=== PATIENT | female | born 1995 | race Two or more races ===

== ENCOUNTER 2018-02-22 13:59 | Outpatient (CLI) | payer MEDICAID ==
[2018-02-22 14:57] LABS: WHITE BLOOD COUNT 8.9 10^3/ul (4.8-10.8)
[2018-02-22 14:57] LABS: ADD MAN DIFF? NO; EOSINOPHILS # 0.1 10^3/ul (0.0-0.5); EOSINOPHILS % 1.2 % (0.0-7.0); HEMATOCRIT 30.2 % (37.0-47.0); HEMOGLOBIN 10.2 g/dl (12.0-16.0); LYMPHOCYTES # 1.5 10^3/ul (0.8-2.9); LYMPHOCYTES % 16.6 % (15.0-51.0); MEAN CORPUSCULAR HEMOGLOBIN 32.2 pg (29.0-33.0); MEAN CORPUSCULAR HGB CONC 33.8 g/dl (32.0-37.0); MEAN CORPUSCULAR VOLUME 95.3 fl (82.0-101.0); MEAN PLATELET VOLUME 10.6 fl (7.4-10.4); MONOCYTE # 0.8 10^3/ul (0.3-0.9); MONOCYTES % 8.7 % (0.0-11.0); NEUTROPHIL # 6.4 10^3/ul (1.6-7.5); NEUTROPHILS % 72.3 % (39.0-77.0); PLATELET COUNT 233 10^3/UL (140-415); RED BLOOD COUNT 3.17 10^6/ul (4.20-5.40); RED CELL DISTRIBUTION WIDTH 12.5 % (11.5-14.5)
== END 2018-02-22 17:00 | disposition home or self-care (01) ==
LOC: OBT 13:59 → L-D 13:59 → OBT 17:00
DX: O9A.212 Injury, poisoning and certain other consequences of external causes complicating pregnancy, second trimester (principal); Z3A.20 20 weeks gestation of pregnancy; V49.9XXA Car occupant (driver) (passenger) injured in unspecified traffic accident, initial encounter; Y92.410 Unspecified street and highway as the place of occurrence of the external cause
CPT/HCPCS: 76815; 85025; 85460; 86850; 86900; 86901

== ENCOUNTER 2018-02-22 17:26 | Emergency (ER) | payer MEDICAID | END 2018-02-22 19:26 | disposition home or self-care (01) | LOC: FTE 17:26 | DX: O9A.212 Injury, poisoning and certain other consequences of external causes complicating pregnancy, second trimester (principal); S39.92XA Unspecified injury of lower back, initial encounter; V43.52XA Car driver injured in collision with other type car in traffic accident, initial encounter; Z3A.20 20 weeks gestation of pregnancy | CPT/HCPCS: 99282; Z7502 ==

== ENCOUNTER 2018-06-18 06:05 | Inpatient (IN) | payer OTHER, MEDICAID ==
[2018-06-18 07:01] LABS: ADD UMIC YES; UR ASCORBIC ACID NEGATIVE (NEGATIVE); UR BACTERIA FEW /HPF (NONE SEEN); UR BILIRUBIN (Dip) NEGATIVE (NEGATIVE); UR BLOOD (Dip) 3+ mg/dL (NEGATIVE); UR CLARITY CLOUDY (CLEAR); UR COLOR AMBER (YELLOW); UR GLUCOSE (Dip) NEGATIVE (NEGATIVE); UR KETONES (Dip) NEGATIVE (NEGATIVE); UR LEUKOCYTE ESTERASE (Dip) NEGATIVE Leu/ul (NEGATIVE); UR NITRITE (Dip) NEGATIVE (NEGATIVE); UR RBC 19 /HPF (0-5); UR SPECIFIC GRAVITY (Dip) 1.015 (1.003-1.030); UR SQUAMOUS EPITHELIAL CELL MODERATE /HPF (FEW); UR TOTAL PROTEIN (Dip) 1+ mg/dl (NEGATIVE); UR UROBILINOGEN (Dip) 1+ mg/dL (NEGATIVE); UR WBC 12 /HPF (0-5)
[2018-06-18] MEDS: TERBUTALINE 1 MG/ML INJ SC (07:57)
[2018-06-18] MEDS: LACTATED RINGER'S 1,000 ML IV ×4 (07:57→22:42)
[2018-06-18] MEDS: CEFTRIAXONE 1 GM/50 ML (PMX) 50 ML IVPB (08:46)
[2018-06-18] MEDS ORDERED: BUTORPHANOL 1 MG INJ IV (13:30)
[2018-06-18] MEDS ORDERED: OXYTOCIN 30 UNITS/LR 500 ML IV (13:30)
[2018-06-18] MEDS ORDERED: MISOPROSTOL 200 MCG TAB PR (13:30)
[2018-06-18] MEDS ORDERED: CARBOPROST 250 MCG INJ IM (13:30)
[2018-06-18] MEDS ORDERED: METHYLERGONOVINE 0.2 MG INJ IM (13:30)
[2018-06-18] MEDS ORDERED: BUTORPHANOL 2 MG INJ IV (13:30)
[2018-06-18 14:36] LABS: ADD MAN DIFF? NO
[2018-06-18 14:53] LABS: WHITE BLOOD COUNT 8.1 10^3/ul (4.8-10.8)
[2018-06-18 14:53] LABS: BASOPHILS % 0.4 % (0.0-2.0); EOSINOPHILS % 0.2 % (0.0-7.0); HEMATOCRIT 30.4 % (37.0-47.0); HEMOGLOBIN 10.3 g/dl (12.0-16.0); LYMPHOCYTES # 1.2 10^3/ul (0.8-2.9); LYMPHOCYTES % 14.9 % (15.0-51.0); MEAN CORPUSCULAR HEMOGLOBIN 31.7 pg (29.0-33.0); MEAN CORPUSCULAR HGB CONC 33.9 g/dl (32.0-37.0); MEAN CORPUSCULAR VOLUME 93.5 fl (82.0-101.0); MEAN PLATELET VOLUME 12.1 fl (7.4-10.4); MONOCYTE # 0.5 10^3/ul (0.3-0.9); MONOCYTES % 6.7 % (0.0-11.0); NEUTROPHIL # 6.2 10^3/ul (1.6-7.5); NEUTROPHILS % 77.1 % (39.0-77.0); PLATELET COUNT 162 10^3/UL (140-415); RED BLOOD COUNT 3.25 10^6/ul (4.20-5.40); RED CELL DISTRIBUTION WIDTH 12.1 % (11.5-14.5)
[2018-06-18 15:41] LABS: INR 0.82; PARTIAL THROMBOPLASTIN TIME 23.7 Sec (23.0-35.0); PROTIME 11.4 Sec (11.9-14.9); PT RATIO 0.9
[2018-06-18] MEDS ORDERED: AMPICILLIN 2 GM/NS (PMX) 100 ML (15:48)
[2018-06-18] MEDS: AMPICILLIN 2 GM/NS (PMX) 100 ML IVPB (15:51)
[2018-06-18 16:30] LABS: HEPATITIS B SURFACE ANTIGEN NEGATIVE (NEGATIVE)
[2018-06-18 16:43] LABS: RAPID PLASMA REAGIN NONREACTIVE (NR)
[2018-06-18] MEDS ORDERED: FENTAnyl 2MCG/ML-ROPIV 0.2% 100 ML (19:45)
[2018-06-18] MEDS ORDERED: ONDANSETRON 4 MG INJ IV (20:00)
[2018-06-18] MEDS ORDERED: DIPHENHYDRAMINE 50 MG INJ IV (20:00)
[2018-06-18] MEDS ORDERED: FENTAnyl 2MCG/ML-ROPIV 0.2% 100 ML BAG EPI (20:00)
[2018-06-18] MEDS ORDERED: NALOXONE (0.4 MG/ML) INJ IV (20:00)
[2018-06-18] MEDS: AMPICILLIN 1 GM/NS (PMX) 50 ML IVPB (20:34)
[2018-06-19] MEDS: OXYTOCIN 30 UNITS/LR 500 ML IV ×2 (00:09→01:21)
[2018-06-19] MEDS: LIDOCAINE 1% (MPF) 30 ML INJ INJ (00:18)
[2018-06-19] MEDS: DEXTROSE 5%-LR 1,000 ML IV ×2 (03:06→11:06)
[2018-06-19] MEDS ORDERED: MISOPROSTOL 200 MCG TAB PR (03:30)
[2018-06-19] MEDS ORDERED: ACETAMINOPHEN 325 MG TAB PO (03:30)
[2018-06-19] MEDS ORDERED: DIBUCAINE 1% 30 GM OINT TOP (03:30)
[2018-06-19] MEDS ORDERED: ZOLPIDEM 5 MG TAB PO (03:30)
[2018-06-19] MEDS ORDERED: ONDANSETRON 4 MG INJ IV (03:30)
[2018-06-19] MEDS ORDERED: OXYTOCIN 30 UNITS/LR 500 ML IV (03:30)
[2018-06-19] MEDS ORDERED: CARBOPROST 250 MCG INJ IM (03:30)
[2018-06-19] MEDS ORDERED: DIPHENHYDRAMINE 50 MG INJ IV (03:30)
[2018-06-19] MEDS ORDERED: METHYLERGONOVINE 0.2 MG INJ IM (03:30)
[2018-06-19] MEDS: BENZOCAINE 20% 56 ML SPRAY TOP (04:53)
[2018-06-19] MEDS: WITCH HAZEL/GLYCERIN PAD PR (04:53)
[2018-06-19] MEDS: LANOLIN HPA 1 PKT TOP (04:54)
[2018-06-19] MEDS: IBUPROFEN 600 MG TAB PO ×4 (05:33→23:40)
[2018-06-19] MEDS: LACTATED RINGER'S 1,000 ML IV* ×2 (05:34→11:06)
[2018-06-19] MEDS: SENNA/DOCUSATE NA (8.6MG/50MG) TAB PO ×2 (09:19→20:42)
[2018-06-20] MEDS: IBUPROFEN 600 MG TAB PO ×3 (05:47→17:27)
[2018-06-20] MEDS: OXYCODONE/ASPIRIN (4.88/325) TAB PO ×2 (07:42→20:13)
[2018-06-20 07:49] LABS: ADD MAN DIFF? NO
[2018-06-20 07:57] LABS: WHITE BLOOD COUNT 6.5 10^3/ul (4.8-10.8)
[2018-06-20 07:57] LABS: BASOPHILS % 0.5 % (0.0-2.0); EOSINOPHILS # 0.1 10^3/ul (0.0-0.5); EOSINOPHILS % 1.8 % (0.0-7.0); HEMATOCRIT 31.6 % (37.0-47.0); HEMOGLOBIN 10.3 g/dl (12.0-16.0); LYMPHOCYTES # 1.5 10^3/ul (0.8-2.9); LYMPHOCYTES % 23.1 % (15.0-51.0); MEAN CORPUSCULAR HEMOGLOBIN 30.4 pg (29.0-33.0); MEAN CORPUSCULAR HGB CONC 32.6 g/dl (32.0-37.0); MEAN CORPUSCULAR VOLUME 93.2 fl (82.0-101.0); MEAN PLATELET VOLUME 12.3 fl (7.4-10.4); MONOCYTE # 0.6 10^3/ul (0.3-0.9); MONOCYTES % 8.9 % (0.0-11.0); NEUTROPHIL # 4.2 10^3/ul (1.6-7.5); NEUTROPHILS % 64.6 % (39.0-77.0); PLATELET COUNT 169 10^3/UL (140-415); RED BLOOD COUNT 3.39 10^6/ul (4.20-5.40); RED CELL DISTRIBUTION WIDTH 12.6 % (11.5-14.5)
[2018-06-20] MEDS: SENNA/DOCUSATE NA (8.6MG/50MG) TAB PO (08:54)
[2018-06-21] MEDS: IBUPROFEN 600 MG TAB PO ×3 (00:16→12:19)
[2018-06-21] MEDS: MEASLES,MUMPS,RUBELLA VACCINE INJ SC* (09:00)
[2018-06-21] MEDS: DIPHTH/TET/ACEL PERTUSS (ADULT) 0.5 ML VIAL IM* (09:00)
== END 2018-06-21 13:50 | disposition home or self-care (01) | DRG 805 ==
LOC: OBT 06:05 → PP1 06-19 02:28 → L-D 06:05 → OBT 10:45 → L-D 13:20
PROC: 10E0XZZ Delivery of Products of Conception, External Approach (ICD-10-PCS; principal; 2018-06-19)
PROC: 0HQ9XZZ Repair Perineum Skin, External Approach (ICD-10-PCS; 2018-06-19)
DX: O75.3 Other infection during labor (principal); O60.14X0 Preterm labor third trimester with preterm delivery third trimester, not applicable or unspecified; Z37.0 Single live birth; O36.8130 Decreased fetal movements, third trimester, not applicable or unspecified; O70.0 First degree perineal laceration during delivery; O77.0 Labor and delivery complicated by meconium in amniotic fluid; O99.214 Obesity complicating childbirth; E66.9 Obesity, unspecified; Z3A.36 36 weeks gestation of pregnancy; Z23 Encounter for immunization
CPT/HCPCS: 62319; 76818; 81001; 85025; 85610; 85730; 86592; 86850; 86900; 86901; 87340; 90686; 99464